=== PATIENT | male | born 1930 | race Caucasian/White ===

== ENCOUNTER 2017-09-10 12:31 | Outpatient (CLI) | payer MEDICARE, OTHER ==
[2017-09-10] MEDS ORDERED: FERROUS SULFAT325 MG ORAL (13:43)
[2017-09-10] MEDS ORDERED: DIOVAN320 MG ORAL (13:43)
[2017-09-10] MEDS ORDERED: NORVASC5 MG ORAL (13:43)
[2017-09-10] MEDS ORDERED: OMEPRAZOLE40 M1 ORAL ×2 (13:43→15:31)
[2017-09-10] MEDS ORDERED: NITROGLYCERIN2.5 MG PO (13:43)
[2017-09-10] MEDS ORDERED: LOPRESSOR25 M1 ORAL (13:43)
[2017-09-10] MEDS ORDERED: ASPIR 8181 MG ORAL (13:43)
--- NOTE | 2017-09-10 13:47 | GI Initial Consult Note ---
History of Present Illness General Date patient seen: September 10, 2017 Time patient seen: 13:38 Referring physician: IVONNE Reason for Consultation: GI bleed Present Illness HPI Patient is an 87 year old male referred by Dr. Metcalf for evaluation of possible GI bleed. Patient BIB by daughter. Labs reviewed so significant Hgb drop over the past few months. The patient himself is unaware of any possible GI bleed. Denies any rectal bleed or bloody stools. Has black stools, however, is currently taken Ferrous sulfate for his iron deficiency. The patient presents today with no GI complaints. He had just recently been cleared by Cardiology for endoscopy procedures. No signs of abuse or neglect. Patient is not fall risk. Denies any unintentional weight loss or changes in dietary habits. History as noted below. Home Meds Reported Medications Nitroglycerin (NITROGLYCERIN) 2.5 Mg Capsule.er, 2.5 MG PO, CAP 09/10/17 Amlodipine Besylate (Norvasc) 5 Mg Tablet, 5 MG ORAL DAILY, TAB 09/10/17 Valsartan (DIOVAN) 320 Mg Tablet, 160 MG ORAL DAILY, TAB 09/10/17 Metoprolol Tartrate (Metoprolol Tartrate) 25 Mg Tablet, 25 MG ORAL EVERY 12 HOURS, TAB 09/10/17 Ferrous Sulfate* (FERROUS SULFATE*) 325 Mg Tablet, 325 MG ORAL DAILY, #30 TAB 0 Refills 09/10/17 Aspirin* (ASPIR 81*) 81 Mg Tablet.dr, 81 MG ORAL DAILY, TAB 09/10/17 Omeprazole (OMEPRAZOLE) 40 Mg Capsule.dr, 40 MG ORAL DAILY, CAP 09/10/17 Med list reviewed/reconciled: Yes Patient History History Provided By: Patient, Medical Record PMH Narrative HTN HLD GERD Macular degeneration s/p cataracts BPH s/p prostatectomy S/p Hernia repair on the left S/P TIA Anemia Pertinent Family History: none Social History: Reports: other - coffee Review of Systems All Other Systems: negative except mentioned in HPI Physical Exam T 98.1 BP 145/65 P 97 93 RA WT 157.6 Denies any unintentional weight loss or changes in dietary habits. Sp02 EP Interpretation: reviewed, normal General Appearance: well appearing, no apparent distress, alert Head: normocephalic EENT: PERRL/EOMI, normal ENT inspection Neck: supple Respiratory: normal breath sounds, no respiratory distress Cardiovascular: normal rate Gastrointestinal: normal inspection, non tender, soft, normal bowel sounds, non -distended Rectal: deferred Genitourinary: deferred Musculoskeletal: normal inspection, back normal Neurologic: normal inspection, alert, oriented x3, responsive Psychiatric: normal inspection, judgement/insight normal, memory normal Skin: normal inspection, normal color, no rash, warm/dry, palpation normal, well hydrated Lymphatic: normal inspection, no adenopathy GI: Plan Problems: (1) Colonoscopy planned (2) Anemia (3) Iron deficiency (4) GERD (gastroesophageal reflux disease) (5) HTN (hypertension) (6) HLD (hyperlipidemia) Plan patient to call back to scheduled EGD/colonoscopy - CLD & (Nulytely/Suprep/Movi-Prep) prep instructions given and acknowledged by patient. - NPO @ ME day prior procedure explained. - patient instructed to stop iron 1 week prior procedure date. labs to be drawn day of procedure >> CEA Seen with Dr. Munoz. Thank you for this patient referral. The patient was seen and examined at bedside and all new and available data was reviewed in the patients chart. I agree with the above findings, impression and plan. (Patient seen earlier today. Signature stamp does not reflect patient encounter time.). - MD Felicity HuffmanDignity Health St. Joseph'S Hospital And Medical CenterJay BELT BUILDER HELPER September 10, 2017 13:47
[2017-09-10] MEDS ORDERED: PLAVIX75 MG ORAL (15:11)
[2017-09-10] MEDS ORDERED: DEXILANT60 MG ORAL (15:11)
[2017-09-10 15:15] VITALS: BP_SYST 114; BP_SYST 145; BP_DIAS 68; BP_DIAS 82
[2017-09-10] MEDS ORDERED: ATORVASTATIN CA80 MG ORAL (15:31)
[2017-09-10] MEDS ORDERED: ASPIRIN EC81 MG ORAL (15:31)
[2017-09-10] MEDS ORDERED: DOXAZOSIN MESYLA4 MG ORAL (15:31)
[2017-09-10] MEDS ORDERED: ZOLPIDEM TARTRAT5 MG ORAL (15:31)
[2017-09-10] MEDS ORDERED: KLONOPIN1 MG ORAL (15:31)
[2017-09-10] MEDS ORDERED: NAPROXEN500 M2 ORAL (15:31)
[2017-09-10] MEDS ORDERED: VITAMIN D250000 UNI1 ORAL (15:31)
[2017-09-10] MEDS ORDERED: FLUTICASONE PRO16 G1 NASAL (15:31)
== END 2017-09-10 13:05 | disposition home or self-care (01) ==
LOC: PAN 12:31
DX: K21.9 Gastro-esophageal reflux disease without esophagitis (principal); I10 Essential (primary) hypertension; E78.5 Hyperlipidemia, unspecified; D50.9 Iron deficiency anemia, unspecified; Z90.79 Acquired absence of other genital organ(s); Z86.73 Personal history of transient ischemic attack (TIA), and cerebral infarction without residual deficits; Z79.82 Long term (current) use of aspirin
CPT/HCPCS: 99202

== ENCOUNTER 2017-09-17 07:56 | Day surgery (SDC) | payer MEDICARE, OTHER ==
[2017-09-17] VITALS (10 sets, daily range): BP systolic 145–162; BP diastolic 67–86
[~2017-09-17] VITALS: Ht 160 cm; Wt 69.4 kg
[~2017-09-17 07:56] MED LIST: ASPIR 8181 MG ORAL; ASPIRIN EC81 MG ORAL; ATORVASTATIN CA80 MG ORAL; DEXILANT60 MG ORAL; DIOVAN320 MG ORAL; DOXAZOSIN MESYLA4 MG ORAL; FERROUS SULFAT325 MG ORAL; FLUTICASONE PRO16 G1 NASAL; KLONOPIN1 MG ORAL; LOPRESSOR25 M1 ORAL; NAPROXEN500 M2 ORAL; NITROGLYCERIN2.5 MG PO; NORVASC5 MG ORAL; OMEPRAZOLE40 M1 ORAL; PLAVIX75 MG ORAL; VITAMIN D250000 UNI1 ORAL; ZOLPIDEM TARTRAT5 MG ORAL
[2017-09-17] MEDS ORDERED: LR 1000ml 1,000 ML IVLG SCH (09:50)
--- NOTE | 2017-09-17 09:50 | Anethesia Preoperative Eval ---
Anesthesia Pre-op PMH/ROS General Date of Evaluation: September 17, 2017 Time of Evaluation: 10:24 Anesthesiologist: Josh ASA Score: ASA 3 Mallampati Score Class I : Soft palate, uvula, fauces, pillars visible Class II: Soft palate, uvula, fauces visible Class III: Soft palate, base of uvula visible Class IV: Only hard plate visible Mallampati Classification: Class II Surgeon: Mercedes Diagnosis: Adb Pain Surgical Procedure: EGD Anesthesia History: none Family History: no anesthesia problems Allergies: Coded Allergies: No Known Allergies (Unverified , 09/10/17) Medications: see eMAR Past Medical History Cardiovascular: Reports: HTN, CAD - Stent, other - HL Gastrointestinal/Genitourinary: Reports: GERD, other - Prostate CA, BPH HEENT: Reports: cataract (L), cataract (R) Hematology/Immune: Reports: anemia PSxH Narrative: Prostatectomy L IHR Anesthesia Pre-op Phys. Exam Physician Exam Last Vital Signs Date Time Temp Pulse Resp B/P (MAP) Pulse Ox O2 Delivery O2 Flow Rate FiO2 09/17/17 08:59 98.6 67 18 145/67 96 Room Air 98.6 Constitutional: NAD Neurologic: CN 2-12 intact Cardiovascular: RRR Respiratory: CTA Gastrointestinal: S/NT/ND Airway Exam Mallampati Score: Class II MO: limited ROM: limited Teeth: missing, intact Anesthesia Pre-op A/P Labs Chemistry Test 09/17/17 09:19 Carcinoembryonic Antigen Pending Risk Assessment & Plan Assessment: ASA 3 Plan: GA Status Change Before Surgery: No Sid Barker MD September 17, 2017 09:50
--- NOTE | 2017-09-17 09:54 | 48 Hour Post Anesthesia Eval ---
Post Anesthesia Evaluation Procedure: EGD/ Colonoscopy Date of Evaluation: September 17, 2017 Time of Evaluation: 12:43 Blood Pressure Systolic: 151 0: 83 Pulse Rate: 76 Respiratory Rate: 18 Temperature (Fahrenheit): 98.2 O2 Sat by Pulse Oximetry: 100 Airway: patent Nausea: No Vomiting: No Pain Intensity: 2 Hydration Status: adequate Cardiopulmonary Status: Stable Mental Status/LOC: patient returned to baseline Follow-up Care/Observations: 0 Post-Anesthesia Complications: 0 Follow-up care needed: ready to discharge Sid Barker MD September 17, 2017 09:54
--- NOTE | 2017-09-17 09:54 | Immediate Post-Op Evaluation ---
Immediate Post-Op Evalulation Immediate Post-Op Evalulation Procedure: EGD/Colonoscopy Date of Evaluation: September 17, 2017 Time of Evaluation: 10:38 IV Fluids: 1000 LR Blood Products: 0 Estimated Blood Loss: 1 Urinary Output: 0 Blood Pressure Systolic: 153 Blood Pressure Diastolic: 80 Pulse Rate: 76 Respiratory Rate: 16 O2 Sat by Pulse Oximetry: 100 Temperature (Fahrenheit): 97.8 Pain Score (1-10): 2 Nausea: No Vomiting: No Complications 0 Patient Status: awake, reacts, patent, none Hydration Status: adequate Sid Barker MD September 17, 2017 09:54
[2017-09-17] MEDS ORDERED: Ketorolac 30mg Inj IV PRN ×2 (10:00)
[2017-09-17] MEDS ORDERED: Atropine Inj 1mg/10ml Syr IV PRN (10:00)
[2017-09-17] MEDS ORDERED: oxyCODONE HCL/Acetaminophen 5/325mg ORAL PRN (10:00)
[2017-09-17] MEDS ORDERED: HYDROcodone/Acetamin 7.5/325 tab ORAL PRN (10:00)
[2017-09-17] MEDS ORDERED: Norco 5mg/325mg tab ORAL PRN (10:00)
[2017-09-17] MEDS ORDERED: DiphenhydrAMINE 50mg/ml Inj IVP PRN (10:00)
[2017-09-17] MEDS ORDERED: Metoclopramide 10mg/2ml Inj IVP PRN (10:00)
[2017-09-17] MEDS ORDERED: LORazepam Inj 2mg/ml 1ml IV PRN (10:00)
[2017-09-17] MEDS ORDERED: fentaNYL 100 mcg/2 mL IV PRN (10:00)
[2017-09-17] MEDS ORDERED: Midazolam 2mg/2ml Inj IVP PRN (10:00)
[2017-09-17] MEDS ORDERED: Labetalol 5mg/ml 20ml vial IV PRN (10:00)
[2017-09-17] MEDS ORDERED: Midazolam 2mg/2ml Inj ONE (10:30)
[2017-09-17] MEDS ORDERED: Lidocaine 1% MPF 10mg/ml 5ml ONE (10:30)
[2017-09-17] MEDS ORDERED: LR 1000ml ONE (10:30)
[2017-09-17] MEDS ORDERED: Propofol 200mg/20ml IV ONE (10:30)
--- NOTE | 2017-09-17 10:34 | Short Stay Surgery H&P ---
History of Present Illness History of Present Illness Chief Complaint see recent full consult note HPI Kenji Sheldon is a 87 year old male who was admitted on for Abdominal Pain Patient History Allergies: Coded Allergies: No Known Allergies (Unverified , 09/10/17) Medication History Scheduled Amlodipine Besylate (Norvasc), 5 MG ORAL DAILY, (Reported) Aspirin Ec* (Aspirin Ec*), 81 MG ORAL DAILY, (Reported) Atorvastatin Calcium* (Lipitor*), 80 MG ORAL BEDTIME, (Reported) Clonazepam* (Klonopin*), 1 MG ORAL Q6H, (Reported) Ergocalciferol (Vitamin D2)* (Vitamin D*), 50,000 UNIT ORAL ONCE A WEEK, ( Reported) Ferrous Sulfate* (Ferrous Sulfate*), 325 MG ORAL DAILY, (Reported) Metoprolol Tartrate (Metoprolol Tartrate), 25 MG ORAL EVERY 12 HOURS, (Reported) Naproxen* (Naproxen*), 500 MG ORAL PRN, (Reported) Omeprazole (Omeprazole), 40 MG ORAL DAILY, (Reported) Valsartan (Diovan), 160 MG ORAL DAILY, (Reported) Scheduled PRN Zolpidem Tartrate* (Zolpidem Tartrate*), 5 MG ORAL BEDTIME PRN for Insomnia, ( Reported) Miscellaneous Medications Nitroglycerin (Nitroglycerin), 2.5 MG PO, (Reported) Discontinued Medications Aspirin* (Aspir 81*), 81 MG ORAL DAILY, (Reported) Discontinued Reason: MD discontinued med Dexlansoprazole (Dexilant), 60 MG ORAL DAILY, (Reported) Discontinued Reason: MD discontinued med Doxazosin Mesylate* (Doxazosin Mesylate*), 4 MG ORAL DAILY, (Reported) Discontinued Reason: Pt stopped taking med Fluticasone Propionate* (Fluticasone Propionate*), 2 SPRAY NASAL DAILY, ( Reported) Discontinued Reason: Pt stopped taking med Omeprazole (Omeprazole), 40 MG ORAL DAILY, (Reported) Discontinued Reason: MD discontinued med Physical Exam Vital Signs Last Vital Signs Date Time Temp Pulse Resp B/P (MAP) Pulse Ox O2 Delivery O2 Flow Rate FiO2 09/17/17 08:59 98.6 67 18 145/67 96 Room Air 98.6 Labs Laboratory Tests Test 09/17/17 09:19 Carcinoembryonic Antigen Pending Plan Attestation Are the patient's medical conditions optimized for surgery? Jonah Munoz MD September 17, 2017 10:34
--- NOTE | 2017-09-17 10:34 | Pre-Procedure Note/Attestation ---
Pre-Procedure Note/Attestation Complete Prior to Procedure Planned Procedure: not applicable Procedure Narrative: esophagogastroduodenoscopy and colonoscopy Indications for Procedure Pre-Operative Diagnosis: iron def anemia Attestation I attest that I discussed the nature of the procedure; its benefits; risks and complications; and alternatives (and the risks and benefits of such alternatives ), prior to the procedure, with the patient (or the patient's legal education courses sales representative). I attest that, if there was a reasonable possibility of needing a blood transfusion, the patient (or the patient's legal education courses sales representative) was given the [facility] standardized written summary, pursuant to the [place] Blood Safety Act ([place] Health and Safety Code # 1645, as amended). I attest that I re-evaluated the patient just prior to the surgery and that there has been no change in the patient's H&P, except as documented below: Jonah Munoz MD September 17, 2017 10:33
--- NOTE | 2017-09-17 11:20 | Endoscopy Procedure Note ---
Endoscopy Procedure Note General Indication for Procedure: iron def anemia Procedures Performed: EGD, colonoscopy Operative Findings/Diagnosis: 7 polyps Specimen: yes Pt Tolerated Procedure Well: Yes Estimated Blood Loss: none Anesthesia Anesthesiologist: mesha Anesthesia: MAC Inserted Devices Implant(s) used?: No Quality Quality of Bowel Preparation: Excellent Did scope reach the cecum?: Yes Was there any complications?: No GI Core Measures 50 yrs or older w/o bx or poly: No 10yrs. F/U not recommended: Yes If not recommended, why?: Above average risk 10 yrs. F/U needed: Yes 18 years or older w/prev. colo: No Jonah Munoz MD September 17, 2017 11:20
--- NOTE | 2017-09-18 00:15 | Procedure Note ---
DATE OF PROCEDURE: 09/17/2017 NOTE: POOR AUDIO SURGEON: Jonah Munoz M.D. PROCEDURE: with biopsy . INSTRUMENT: . ANESTHESIA: . INDICATION: . mild to moderate gastritis REASON FOR PROCEDURE: The procedure, risks, benefits, and possible consequences, including hemorrhage, aspiration, perforation and infection, and alternative treatments, were explained to the patient/legal guardian by Dr. Jonah Munoz and the patient/legal guardian understood and accepted these risks. DESCRIPTION OF PROCEDURE: gastric mucosa shallow ulceration suggestive of ulcer in the antrum of the stomach. biopsy from body and antrum infection. In the duodenal bulb, there was also evidence of duodenitis . At this time, the abdomen was . The patient was then present. several polyps examination. One polyp was appendiceal orifice in the cecum. . There were four polyps in the ascending colon, one of them was actually . There were two small polyps , one of them . There was another polyp, flat polyp in the ascending colon . There was one small polyp in the . FINDINGS: 1. gastritis. 2. duodenitis. 3. . RECOMMENDATIONS: Follow up biopsy results and treat accordingly. Jonah Munoz M.D. DR: CHRIS JOB#: [id number] CC:
--- NOTE | 2017-09-27 17:32 | Procedure Note ---
DATE OF PROCEDURE: 09/17/2017 SURGEON: Jonah Munoz M.D. ANESTHESIOLOGIST: Dr. Barker. PROCEDURE: Upper endoscopy with biopsy and colonoscopy with biopsy and snare polypectomy. ANESTHESIA: Per Dr. Barker. INSTRUMENT: Olympus adult flexible upper endoscope and colonoscope. INDICATION: Screening colonoscopy, chronic GERD. The procedure, risks, benefits, and possible consequences, including hemorrhage, aspiration, perforation and infection, and alternative treatments, were explained to the patient/legal guardian by Dr. Jonah Munoz and the patient/legal guardian understood and accepted these risks. DESCRIPTION OF PROCEDURE: Unfortunately, this is a re-dictation. The first original dictation did not come out good, so the findings and this might not be very specific. The patient had an upper endoscope passed from the esophagus into the stomach and to the duodenum and retroflexion was performed in the stomach. The patient had evidence of diffuse gastritis. There was also evidence of some duodenitis. Biopsy from the body, antrum, and duodenum was obtained and sent to pathology for evaluation. At this time, the upper endoscope was retrieved. The patient was turned over for colonoscopy. First, rectal exam was performed which was normal. Then, the scope was advanced from the rectum to the cecum documented by the appendiceal orifice, ileocecal valve, and right upper quadrant palpation. The patient had total of 7 polyps removed from this colonoscopy examination. The polyps were in the transverse colon, ascending colon, and cecum. Most of the polyps were removed with biopsy forceps technique and some removed with snare polypectomy technique. The rest of the examination grossly within limit. Retroflexion of rectum showed evidence of small internal hemorrhoids. SUMMARY OF FINDINGS: 1. Gastritis. 2. Duodenitis. 3. A total of 7 polyps removed. 4. Internal hemorrhoids. RECOMMENDATIONS: Follow up biopsy results and treat accordingly. Given 7 polyps, we recommend repeat colonoscopy in three years. Jonah Munoz M.D. DR: Faiza JOB#: [id number] CC:
== END 2017-09-17 12:55 | disposition home or self-care (01) ==
LOC: SDS 07:56
DX: Z12.11 Encounter for screening for malignant neoplasm of colon (principal); K21.9 Gastro-esophageal reflux disease without esophagitis; K29.50 Unspecified chronic gastritis without bleeding; B96.81 Helicobacter pylori [H. pylori] as the cause of diseases classified elsewhere; K29.80 Duodenitis without bleeding; D12.2 Benign neoplasm of ascending colon; D12.0 Benign neoplasm of cecum; D12.3 Benign neoplasm of transverse colon; I11.9 Hypertensive heart disease without heart failure; Z85.46 Personal history of malignant neoplasm of prostate; Z79.82 Long term (current) use of aspirin
CPT/HCPCS: 43239; 45380; 82378; 93005; J2250; J2704; J7120; 94003; 94150

== ENCOUNTER 2017-10-08 13:11 | Outpatient (CLI) | payer MEDICARE, OTHER ==
--- NOTE | 2017-10-08 15:26 | GI Progress Note ---
Assessment/Plan Problems: (1) H. pylori infection ICD Codes: A04.8 - Other specified bacterial intestinal infections SNOMED: 723789006 (2) Anemia ICD Codes: D64.9 - Anemia, unspecified SNOMED: 968920322 (3) Iron deficiency ICD Codes: E61.1 - Iron deficiency SNOMED: 92707810 (4) GERD (gastroesophageal reflux disease) ICD Codes: K21.9 - Gastro-esophageal reflux disease without esophagitis SNOMED: 292578800 Status: stable Status Narrative Seen with Dr. Munoz. Assessment/Plan SUMMARY OF FINDINGS reviewed with patient: 1. Gastritis. 2. Duodenitis. 3. A total of 7 polyps removed. 4. Internal hemorrhoids. RECOMMENDATIONS: Follow up biopsy results and treat accordingly. H. Pylori Treatment >> - Amoxicillin 1g BID - Biaxin 500mb BID - Omeprazole 40mg x 2 weeks followed by Omeprazole 40mg PO daily x 6 weeks RTC x 3 month for repeat Breath Test Given 7 polyps, we recommend repeat colonoscopy in three years. Subjective Gastrointestinal/Abdominal: Reports: no symptoms Objective T 97.7 BP 124/66 P 62 95 RA General Appearance: WD/WN, no apparent distress, alert Cardiovascular: normal rate Respiratory/Chest: normal breath sounds, no respiratory distress Abdominal Exam: normal bowel sounds, non tender, soft Extremities: normal range of motion, non-tender Kerwin Blevins NP Oct 08, 2017 15:26
== END 2017-10-08 13:43 | disposition home or self-care (01) ==
LOC: PAN 13:11
DX: K21.9 Gastro-esophageal reflux disease without esophagitis (principal); A04.8 Other specified bacterial intestinal infections; D64.9 Anemia, unspecified; E61.1 Iron deficiency; K29.70 Gastritis, unspecified, without bleeding; K64.8 Other hemorrhoids; K63.5 Polyp of colon
CPT/HCPCS: 99211

== ENCOUNTER 2017-12-03 13:51 | Outpatient (CLI) | payer MEDICARE, OTHER ==
--- NOTE | 2017-12-03 14:18 | GI Progress Note ---
Assessment/Plan Problems: (1) H. pylori infection ICD Codes: A04.8 - Other specified bacterial intestinal infections SNOMED: 744894065 (2) GERD (gastroesophageal reflux disease) ICD Codes: K21.9 - Gastro-esophageal reflux disease without esophagitis SNOMED: 818457451 (3) Anemia ICD Codes: D64.9 - Anemia, unspecified SNOMED: 114460817 (4) Iron deficiency ICD Codes: E61.1 - Iron deficiency SNOMED: 24065962 Status: stable Status Narrative Seen with Dr. Munoz. Assessment/Plan s/p Tx for H. Pylori repeat BT RTC after lab results if necessary for retreatment RTC prn Given 7 polyps, we recommend repeat colonoscopy in three years. The patient was seen and examined at bedside and all new and available data was reviewed in the patients chart. I agree with the above findings, impression and plan. (Patient seen earlier today. Signature stamp does not reflect patient encounter time.). - Jonah Munoz MD Subjective Gastrointestinal/Abdominal: Reports: no symptoms Objective T 98.1 BP 128/65 P 69 97 RA General Appearance: WD/WN, no apparent distress, alert Cardiovascular: normal rate Respiratory/Chest: normal breath sounds, no respiratory distress Abdominal Exam: normal bowel sounds, non tender, soft Extremities: normal range of motion, non-tender Kerwin Blevins NP Dec 03, 2017 14:18
[2017-12-03 14:22] VITALS: BP 128/65
== END 2017-12-03 14:25 | disposition home or self-care (01) ==
LOC: PAN 13:51
DX: K21.9 Gastro-esophageal reflux disease without esophagitis (principal); A04.8 Other specified bacterial intestinal infections; D64.9 Anemia, unspecified; E61.1 Iron deficiency
CPT/HCPCS: 83013; G0463; 99212